=== PATIENT | female | born 1955 | race Asian ===

== ENCOUNTER → 2024-02-13 | Outpatient (CLI) | payer OTHER ==
[2024-02-14 08:06] LABS: RUBELLA AB IGG-REFLAB 1.42 index (Immune >0.99); RUBEOLA (MEASLES) IGG >300.0 AU/mL (Immune >16.4); VARICELLA ZOSTER IGG AB TITER 1889 index (Immune >165)
[2024-02-15 09:07] LABS: QUANTIFERON+, Nil Value 0.09 IU/mL; QUANTIFERON+,Mitogen Value 8.56 IU/mL; QUANTIFERON+,TB2 Antigen Value 0.65 IU/mL; QUANTIFERON, TB GOLD PLUS Positive (Negative)
== END | disposition home or self-care (01) ==
LOC: LABMN 11:36
PROVIDERS: ATTEND Family Medicine
DX: Z20.828 Contact with and (suspected) exposure to other viral communicable diseases (principal); Z11.3 Encounter for screening for infections with a predominantly sexual mode of transmission; Z20.1 Contact with and (suspected) exposure to tuberculosis; Z02.89 Encounter for other administrative examinations
CPT/HCPCS: 86480; 86592; 86706; 86735; 86762; 86765; 86787; 87491; 87591